=== PATIENT | female | born 1990 | race Caucasian/White ===

== ENCOUNTER 2021-08-30 15:15 | Emergency (ER) | payer OTHER ==
[~2021-08-30 15:15] MED LIST: AMOXICILLIN500 MG PO; CLEOCIN HCL150 MG PO; CLEOCIN HCL300 MG PO; IBUPROFEN600 MG PO; KEFLEX CAP 500500 MG PO; NORCO 5-325 TA1 EACH PO; PEPCID20 MG PO; PHENERGAN 12.12.5 M1 PO; PRENATAL VITAM1 EAC8 PO; REGLAN10 MG PO; TORADOL 10 MG T10 MG PO; TYLENOL 500 MG500 MG PO; ZOVIRAX 200 MG200 MG PO
[2021-08-30] MEDS ORDERED: TESSALON PERLE100 MG PO (17:30)
[2021-08-30] MEDS ORDERED: MEDROL DOSEPAK 24 MG PO (17:30)
== END 2021-08-30 17:40 | disposition home or self-care (01) ==
LOC: ER1 15:15
DX: J42 Unspecified chronic bronchitis (principal); Z86.19 Personal history of other infectious and parasitic diseases; Z87.891 Personal history of nicotine dependence; Z20.822 Contact with and (suspected) exposure to COVID-19
CPT/HCPCS: 71045; 99283; U0002

== ENCOUNTER 2022-05-29 07:26 | Inpatient (IN) | payer OTHER ==
[~2022-05-29] VITALS: Ht 167.6 cm; Wt 139.7 kg
[~2022-05-29 07:26] MED LIST changes: +MEDROL DOSEPAK 24 MG PO; +TESSALON PERLE100 MG PO
[2022-05-29 07:59] LABS: HEMOGLOBIN 11.1 gm/dl (12.3-15.3); RED BLOOD COUNT 4.22 M/UL (4.00-5.10); WHITE BLOOD COUNT 9.8 K/UL (4.5-11.0)
[2022-05-29] MEDS ORDERED: DOCUSATE SODIU100 MG PO (11:56)
[2022-05-29] MEDS ORDERED: MACROBID 100 M100 MG PO (11:56)
[2022-05-29] MEDS ORDERED: HYDROCODON-ACE1 EAC4 PO (11:56)
[2022-05-29] MEDS ORDERED: IBUPROFEN600 MG PO (11:56)
[2022-05-30 06:16] LABS: HEMOGLOBIN 9.5 gm/dl (12.3-15.3)
[2022-05-31] MEDS ORDERED: ZOLOFT50 MG PO (12:36)
== END 2022-05-31 16:13 | disposition home or self-care (01) | DRG 787 ==
LOC: GENOP 07:26 → OB 07:55
PROVIDERS: ADMIT Obstetrics & Gynecology
PROC: 4A1HXCZ Monitoring of Products of Conception, Cardiac Rate, External Approach (ICD-10-PCS; 2022-05-29)
PROC: 3E0234Z Introduction of Serum, Toxoid and Vaccine into Muscle, Percutaneous Approach (ICD-10-PCS; 2022-05-29)
PROC: 10D00Z1 Extraction of Products of Conception, Low, Open Approach (ICD-10-PCS; principal; 2022-05-31)
DX: O32.1XX0 Maternal care for breech presentation, not applicable or unspecified (principal); N39.0 Urinary tract infection, site not specified; O98.42 Viral hepatitis complicating childbirth; Z20.822 Contact with and (suspected) exposure to COVID-19; O86.20 Urinary tract infection following delivery, unspecified; Z28.310 Unvaccinated for COVID-19; Z37.0 Single live birth; Z3A.39 39 weeks gestation of pregnancy; B19.20 Unspecified viral hepatitis C without hepatic coma; O99.214 Obesity complicating childbirth; E66.9 Obesity, unspecified; F17.210 Nicotine dependence, cigarettes, uncomplicated; O99.345 Other mental disorders complicating the puerperium; F53.0 Postpartum depression; Z82.49 Family history of ischemic heart disease and other diseases of the circulatory system; Z80.9 Family history of malignant neoplasm, unspecified; Z83.3 Family history of diabetes mellitus; Z83.49 Family history of other endocrine, nutritional and metabolic diseases; Z23 Encounter for immunization
CPT/HCPCS: 36415; 81001; 82800; 85014; 85018; 85025; 90715; 96372; C9113; J0690; J1170; J1650; J2250; J2405; J2590; J2704